=== PATIENT | female | born 1985 | race Caucasian/White ===

== ENCOUNTER 2016-08-18 12:52 | Observation (INO) ==
[2016-08-18 13:20] LABS: Bilirubin,Urine Negative (Negative); Blood,Urine Negative (Negative); Clarity,Urine Cloudy (Clear); Color,Urine Yellow (Yellow); Glucose,Urine (UA) Normal (Normal); Ketones,Urine Negative (Negative); Leukocyte Esterase,Urine Negative (Negative); Nitrite,Urine Negative (Negative); Protein,Urine Negative (Neg-Trace); Specific Gravity,Urine 1.018 (1.010-1.025); Urobilinogen,Urine Normal (Normal)
[2016-08-18 13:22] LABS: Bacteria,Urine None Seen per hpf (None-Few); Hyaline Casts,Urine None Seen per lpf (None-Few); RBC,Urine 0-3 per hpf (0-3); Squamous Epithelial Cell,Urine Many per lpf (None-Few); WBC,Urine 0-3 per hpf (0-3)
[2016-08-18 13:38] VITALS: BP 126/71
--- NOTE | 2016-08-18 13:55 | Discharge Summary ---
Date of Encounter: 08/18/16 Time of Encounter: 13:54 - Discharge Diagnosis (1) 33 weeks gestation of Priority: Primary Status: Acute Comments: Admit for labor evaluation (2) Decreased movement during in third trimester, antepartum Priority: Secondary Status: Acute Comments: Reactive NST FHR 140 bpm moderate variability +15x15 accels no decels noted. Qualifiers: Fetus number: single or unspecified fetus Qualified Code(s): O36.8130 - Decreased movements, third trimester, not applicable or unspecified (3) NST (non-stress test) reactive Priority: Secondary Status: Acute Comments: RNST - Discharge Medications Home Medications: Pnv95/Ferrous Fumarate/FA [ Caplet] 1 each PO DAILY 05/21/16 [History] Allergies/Adverse Reactions: Allergies No Known Allergies Allergy (Verified 08/18/16 13:39) Data Procedures and tests throughout hospitalization: Laboratory Tests 08/18/16 13:05 Urine Color Yellow Urine Clarity Cloudy A Urine pH 7.0 Ur Specific [place] 1.018 Urine Protein Negative Urine Glucose (UA) Normal Urine Ketones Negative Urine Blood Negative Urine Nitrite Negative Urine Bilirubin Negative Urine Urobilinogen Normal Ur Leukocyte Esterase Negative Urine Microscopic RBC 0-3 Urine Microscopic WBC 0-3 Ur Squamous Epith Cells Many H Urine Bacteria None Seen Hyaline Casts None Seen Ur Culture Indicated? NO Labs on day of discharge: Labs from last 24 hours 08/18/16 13:05 Urine Color Yellow Urine Clarity Cloudy A Urine pH 7.0 Ur Specific [place] 1.018 Urine Protein Negative Urine Glucose (UA) Normal Urine Ketones Negative Urine Blood Negative Urine Nitrite Negative Urine Bilirubin Negative Urine Urobilinogen Normal Ur Leukocyte Esterase Negative Urine Microscopic RBC 0-3 Urine Microscopic WBC 0-3 Ur Squamous Epith Cells Many H Urine Bacteria None Seen Hyaline Casts None Seen Ur Culture Indicated? NO Date of admission: 08/18/16 12:52 Primary care physician: PCP NO Discharging clinician: Barbi Avila Anticipated date of discharge: 08/18/16 - Patient Status Disposition: Home, Self-Care Condition: Good Functional capacity at discharge: independent ambulation - Discharge Instructions Follow Up With: NO,PCP [Primary Care Provider] - Konrad Pritchett MD [Partnered Physician] - - Diet and Activity Activity: increase activity as tolerated Diet: regular diet Hospital Course FORM PRESS OPERATOR Time Attestation: Total time spent providing and/or coordinating discharge services: Exam - Constitutional Vitals: Temp Pulse Resp BP 96.1 F L 103 20 126/71 08/18/16 13:24 08/18/16 13:24 08/18/16 13:24 08/18/16 13:24 General appearance IM: A&O X 3, pleasant, answers questions appropriately - Respiratory Respiratory exam: Present: CTAB - Cardiovascular Cardiovascular exam IM: Present: RRR, +S1, +S2 - GI/Abdominal GI/Abdominal exam IM: normal bowel sounds - Extremities Exam Extremities exam IM: Present: full ROM, normal capillary refill, normal inspection - Neurological Exam Neurological exam: alert, oriented X3, reflexes normal - VTE Reasons for not Prescribing Prophylaxis: Treatment not Indicated - Low risk for VTE
== END 2016-08-18 14:05 | disposition home or self-care (01) ==
LOC: 1NENULAB
PROVIDERS: ADMIT Obstetrics & Gynecology; ATTEND Obstetrics & Gynecology

== ENCOUNTER → 2016-09-23 12:35 | Observation (INO) ==
--- NOTE | 2016-09-23 11:00 | OB/GYN History & Physical ---
Date of Encounter: 09/23/16 Time of Encounter: 10:53 Assessment and Plan (1) Elective induction of labor planned Current visit: Yes Status: Acute At 39 weeks (future date), FHR/tocometer and IVF with patients requests for epidural for pain control. clear liquid diet. OK to walk, use birthing ball in efforts to progress labor (2) 38 weeks gestation of Current visit: Yes Status: Acute Receiving care with Dr Pritchett (3) False labor after 37 weeks of gestation without delivery Current visit: Yes Status: Acute No cervical change. Labor warnings given History of Present Illness Chief complaint: possible SROM, contractions HPI: Ms. Raman is a 30 year old female, A1, with one spontaneous miscarriage when she was 18 years of age. She is a patient of Dr. pritchett, 38 weeks and 3/ 7 days. Patient states that she was seen by her OB yesterday and she was 2cm dilated, 70% effaced and at 0430 this morning she woke up with contractions that were spaced at 6 min and had clear-blood tinged loss of fluid. Patient states that she is feeling low back pain and pelvic pressure. No complications this . SROM: 0430 A1 EDAL: 10/04/16 Fluid descriptionL clear to blood-tinged (-) GBS/rubella/HbSAg/T.pallidam/varicella Male child: Zeus Breast feeding [facility] followup circumcision: yes She plans to have an epidural for pain control. Past Med Surg Social Fam HX - Past Medical History Medical history: no medical history Psychiatric history: anxiety - Past Surgical History Surgical History: no surgical history - Social History Smoking Status: Former smoker Smokeless Tobacco Status: No Alcohol use: none Drug use: none - Family History Mother Living Status: Still Living Hx Family Cardiac Disorders: No Hx Family Respiratory Disorders: No Hx Family Cancer: Yes (skin caner) Hx Family GI Disorders: No Hx Family Endocrine Disorder: No Hx Family Neuromuscular Disorders: No Hx Family Neurologic Disorders: No Hx Family HEENT Disorders: No Hx Family Autoimmune Disorders: No Obstetrical History - Pregnancies : 2 Para: 0 Ab's: 1 Medications and Allergies Pnv95/Iron Fum/Folic Acid [ Caplet] 1 each PO DAILY 05/21/16 [History] Allergies No Known Allergies Allergy (Verified 08/18/16 13:39) Review of System OB All systems PM: reviewed and no additional remarkable complaints except as stated - Gastrointestinal Gastrointestinal: as per HPI, abdominal pain - Genitourinary Genitourinary: as per HPI, pelvic pain, vaginal discharge Exam - Vital Signs Vital signs: Afeb, VSS - Constitutional Constitutional: well developed, well nourished, no acute distress, average body habitus - HEENT HEENT: Normocephaly, Mucus Membranes Moist - Neck Neck exam: full ROM, normal inspection - Lungs Respiratory exam: CTAB - Cardiovascular Cardiovascular exam: RRR - Breasts Breast: bilateral: normal - Abdomen Abdomen: Present: bowel sounds normal, gravid, non tender - Extremities Extremities exam: full ROM, normal capillary refill, normal inspection - Vagina Vagina: Present: normal moisture (normal show, NTZ neg) - Cervix Dilation: 2 (per RN) Effacement: 70 (per RN) Station: -1 - Uterus Uterus exam: Present: normal size, normal contour - Anus/Rectum Anus/Rectum: Present: normal perianal skin Results All other labs normal. - VTE Reasons for not Prescribing Prophylaxis: Treatment not Indicated - Low risk for VTE - Attending Attestation I examined this patient and my medical decision-making was reviewed with the CHESTNUT TANNER/PA/Advanced Practice Nurse/Resident Physician. I agree with the documented findings, disposition and treatment plan as described except to the extent set forth below.
== END | disposition home or self-care (01) ==
LOC: 1NENULAB
PROVIDERS: ADMIT Obstetrics & Gynecology; ATTEND Obstetrics & Gynecology

== ENCOUNTER 2016-09-24 00:11 | Inpatient (IN) ==
--- NOTE | 2016-09-23 21:32 | OB/GYN Progress Note ---
Addendum entered and electronically signed by Preeti Rodríguez DO 09/24/16 06:14: On exam: Trace edema in bilateral extremities, non-tender, deep tendon reflexes 2+. Normal external genital exam with no evidence lesions, sores, or bleeding. No clear fluid leaking or pooling in the posterior fornix or running out of cervical OS, cervix dilated at 3cm, 80% effacement, station ballotable. Assessment and Plan: 38 weeks gestation of Nitrazine test was performed this morning at 10:43 by Jessica PINEDA and was negative. Multiple digital exams had been performed during the course of her stay using lubricant gel to check for cervical change/progression making a repeat test less likely to be accurate as specimen would be contaminated. Will give patient fluid bolus for dehydration as she admits she has been nauseated and unable to keep food down with episodes of vomiting and continue to monitor to see if patient makes progress toward active labor. Original Note: Date of Encounter: 09/24/16 Time of Encounter: 21:32 - Assessment and Plan (1) 38 weeks gestation of Current Visit: Yes Status: Acute 38 weeks and 3 days. (2) NST (non-stress test) reactive Current Visit: No Status: Acute FHR 135 baseline (3) Active labor Current Visit: Yes Status: Acute During the course of her stay patient's contractions at more consistent intervals of 2-4 minutes with progression; cervix now at 6 cm 90% effacement and 0 station. Patient received fluid bolus of 500 mils lactated Ringer and is currently on maintenance 125 mils an hour lactated Ringer's. Patient has also received Zofran and Tylenol. Plan for epidural anesthesia and Nubain for pain management. Expected management for spontaneous vaginal delivery. Possible AROM. Subjective - Subjective Principal diagnosis: Labor eval Interval history: Caitie Raman is a 30-year-old female at 38 weeks and 3 days. Patient was seen here earlier today at 10:53 am for false labor that began around 04:30 this am with contractions reported to be 6-10 minutes apart, clear fluid loss, low back pain and pelvis pressure, cervix was 2 cm dilated 70% effaced. During her course of stay there was no cervical change/progress on further evaluation patient was given return precautions and was discharged home. Patient has now returned for progressively increasing contractions noted to be 4 minutes apart at home, further leakage of clear fluid, pelvic pressure, low back pain, headaches and nausea with two episode of non-bloody emesis since arrival. Patient is seen by Dr. Pritchett. No complications during this . Patient plans to have an epidural for pain control during labor. 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 Last Pap smear 4 years ago Abnormal Pap smear 07/22/2009 low-grade squamous intraepithelial lesion History of Chlamydia date unknown. Last menstrual period 01/02/2016 I examined this patient and my medical decision-making was reviewed with the BENDING MACHINE SET UP OPERATOR/PA/Advanced Practice Nurse/Resident Physician. I agree with the documented findings, disposition and treatment plan as described except to the extent set forth below. Antepartum ROS: movement normal, contractions Objective - Vital Signs Vital Signs: Intake and Output 09/23/16 09/23/16 09/23/16 07:59 15:59 23:59 Other: Weight 111.2 kg Patient Weight 09/23/16 23:59 Weight 111.2 kg - Exam FHR: auscultation normal Auscultation: bilateral: normal Abdomen: Present: normal appearance, soft, gravid Uterus: Present: normal Cervical dilation: 4 Cervix effacement: 80 station: -1
[2016-09-23 23:07] LABS: Basophils # 0.1 K/mcL (0.0-0.2); Basophils % 0.3 %; Eosinophils % 0.1 %; Hematocrit 37.6 % (35.3-44.9); Hemoglobin 12.7 g/dL (11.5-15.4); Immature Granulocytes % 1.3 % (0-4); Lymphocytes # 1.3 K/mcL (0.6-4.6); Lymphocytes % 6.5 %; Mean Corpuscular HGB Conc 33.8 g/dL (31.6-35.5); Mean Corpuscular Hemoglobin 28.2 pg (28.0-33.3); Mean Corpuscular Volume 83.4 fL (83.0-100.0); Monocytes # 0.7 K/mcL (0.0-1.3); Monocytes % 3.7 %; Neutrophils # 17.1 K/mcL (1.6-8.9); Platelet Count 284 K/mcL (140-400); Red Blood Count 4.51 M/mcL (3.82-4.97); Red Cell Distribution Width 13.6 % (11.5-14.5); Segmented Neutrophils % 88.1 %
[~2016-09-24 00:11] MED LIST: *HR* Nalbuphine 20 MG/ML AMPUL IVP PRN; Acetaminophen 325 MG TABLET PO ONE; Famotidine 20 MG/2 ML VIAL IVP PRN; Metoclopramide 10 MG/2 ML VIAL IVP PRN; Naloxone 0.4 MG/ML INJ IVP PRN; Ondansetron ODT 4 MG TAB.RAPDIS SL ONE; Ringers Solution, Lactated 1,000 ML ONE; Ringers Solution, Lactated 500 ML IVC ONE
[2016-09-24] MEDS ORDERED: *HR* FentaNYL (PF) 100 MCG/2 ML VIAL ONE ×3 (00:13→16:22)
[2016-09-24] MEDS ORDERED: Bupivacaine-MPF 0.25% 10 ML VIAL ONE (00:13)
[2016-09-24] MEDS ORDERED: Epidural Premix (fent/bupiv) 110 ML EP ONE ×3 (00:13→14:31)
--- NOTE | 2016-09-24 00:57 | Anesthesia Evaluation PreOp ---
Date of Encounter: 09/24/16 Time of Encounter: 00:25 - Past History Planned Operation: peng Cardiac History: Denies any Significant Hx Pulmonary History: Denies Any Significant HX FUR CUTTER History: Denies Any Significant HX Other Medical History: GERD Anesthesia History: No Prior Anesthetic Complications (never had any procedure requiring GA or NA; denies family h/o anesthesia complications) : Yes Test: Positive Alcohol Use: none Drug use: none Medications and Allergies Pnv95/Iron Fum/Folic Acid [ Caplet] 1 each PO DAILY 05/21/16 [History] Famotidine [Acid Public Policy Coordinator] PO DAILY 09/23/16 [History] Allergies No Known Allergies Allergy (Verified 09/23/16 20:30) - Meds/Allergy Pre-op Review Medications Reviewed: Yes Allergies Reviewed: Yes Beta Blockers on Current Med List: No Anesthesia Results - Labs 09/23/16 22:42 Anesthesia Exam 127/94, HR 99, RR 16 Height: 1.68m Weight: 111kg NPO (# of Hours): solids > 4hours Pain Scale: 10 Pain Scale Used: Numeric (1 - 10) - HEENT Pupil (Motor): Pupils equal Mallampati: II Teeth: Normal Oral Opening: Greater than 3 - FUR CUTTER LOC: Oriented FUR CUTTER Motor: Normal RUE, Normal LUE, Normal RLE, Normal LLE, Normal Face FUR CUTTER Sensory: Normal: RUE, LUE, RLE, LLE, Face - Cardiac Rhythm: Regular Murmur: None JVD: No Carotid Bruit: No - Pulmonary Breath Sounds: bilateral Clear Respiratory Effort: Symmetrical Anesthesia Assess/Plan ASA Score: 2 Modified [place] Scale for Level of Consciousness: Anixous, agitated or restless Anesthetic Plan: Regional Autologous Blood: No Monitoring Plan: Standard Monitors Recovery Plan: Other
--- NOTE | 2016-09-24 01:00 | Anesthesia Procedures ---
Date of Encounter: 09/24/16 Time of Encounter: 00:50 Procedures: Anesthesia - Epidural/Spinal Patient examined: Yes OB Eval: Gestational age: 38 weeks 4 days OB Eval: : 1 OB Eval: Hx Para: 0 OB Eval: Dilated at (cm): 6 OB Eval: Contractions: Non-stressed pattern Consent Obtained: Yes Supplemental Oxygen: None/Room Air Site Prep: Aseptic Technique, Sterile prep and drape, Povidone-Iodine 1% Patient position: upright Local Anesthetic: Lidocaine 1% Amount of Local Anesthetic used: 3 Touhy Needle Gauge: 18 Touhy Needle Depth (cm): 6 Catheter Depth at Skin (cm): 13 Test Dose (1.5% Lido + Epi): Volume given (mls): 5 (given in 2 equally divided doses over a period of 5 min) Test Dose Result: Negative Loading Dose: 0.25% Marcaine (mls): 5 Loading Dose: Fentanyl (mcg): 100 Loading Dose Administered: Thru Catheter Infusion Med: 0.125% Bupivacaine w/ 2 mcg/ml Fentanyl Infusion Rate (mls/hr): 12 (w/ demand bolus of 4mL q20min PRN) Catheter Secured in Place: Tegaderm, Tape Interspace Used: L3-L4 Loss of Resistance (MARICARMEN): Yes Blood: No CSF: No Paresthesia: No Vitals + FHT's: 3 Vital Signs Time 0025 0030 0033 0040 0043 0047 BP 141/102 139/80 123/96 142/84 130/72 116/58 Pulse 90 118 100 93 82 92 FHTs
[2016-09-24] MEDS ORDERED: *HR* FentaNYL (PF) 100 MCG/2 ML VIAL EP ONE (01:01)
[2016-09-24] MEDS ORDERED: Bupivacaine-MPF 0.25% 10 ML VIAL EP ONE (01:01)
[2016-09-24] MEDS ORDERED: Epidural Premix (fent/bupiv) 110 ML EP SCH (01:15)
[2016-09-24] MEDS ORDERED: Mag Hydrox/Al Hydrox/Simeth 30 ML UDC PO PRN (01:39)
--- NOTE | 2016-09-24 03:53 | OB Labor Progress Note ---
Date of Encounter: 09/24/16 Time of Encounter: 03:48 Labor Progress Note - Subjective Subjective: Patient began feeling increased pressure in her lower pelvis and asked for a cervical check. While performing cervix check nurse had sudden gush of fluid from vagina; membranes ruptured and were noted to be clear. Patient states that she is now nervous and excited since her water just broke became very emotional. Patient was cleaned and repositioned in left lateral. Plan to peanut ball. Contractions at intervals between 2-5 min. Patient states that she is feeling much more comfortable with epidural. - Vital Signs Vital Signs: BP 133/72 P 108 RR 16 Afebrile - Cervix Cervix: Completely dilated, station -1 to -2, [id number] - Heart Tones Heart Tones: 130 - Doon Doon: Irregular between 2-5 minutes - Interventions Interventions: 38 week spontaneous labor with SROM - Plan Plan: Expectant management for spontaneous vaginal delivery. I examined this patient and my medical decision-making was reviewed with the COOK HELPER JUICE/PA/Advanced Practice Nurse/Resident Physician. I agree with the documented findings, disposition and treatment plan as described except to the extent set forth below.
[2016-09-24] MEDS: Ondansetron 4 MG/2 ML VIAL IVP PRN ×2 (06:05→10:27)
[2016-09-24] MEDS ORDERED: ROPIVACAINE HCL/PF 0.5% 30 ML VIAL ONE (07:23)
[2016-09-24] MEDS ORDERED: Oxytocin 20 units/ LR 1000 mL 20 UNIT/1,000 ML BAG IVC ONE (07:38)
[2016-09-24] MEDS: Ringers Solution, Lactated 1,000 ML IVC SCH ×2 (07:43→14:06)
[2016-09-24] MEDS ORDERED: miSOPROStol 100 MCG TABLET PO ONE (08:52)
[2016-09-24] MEDS ORDERED: Oxytocin 20 units/ LR 1000 mL 20 UNIT/1,000 ML BAG IVC SCH ×2 (10:00→22:24)
[2016-09-24] MEDS ORDERED: Ondansetron 4 MG/2 ML VIAL IVP ONE (10:15)
--- NOTE | 2016-09-24 13:45 | OB Labor Progress Note ---
Date of Encounter: 09/24/16 Time of Encounter: 13:45 Labor Progress Note - Subjective Subjective: patient is doing well, she still has a rim of cervix, we stopped pitocin earlier on but we have restarted it now that her contractions have stopped. She has an epidural and is comfortable. VSS FHT CAT 1 plan now is to let her labor down cont monitoring strip
--- NOTE | 2016-09-24 16:10 | OB Labor Progress Note ---
Date of Encounter: 09/24/16 Time of Encounter: 16:08 Labor Progress Note - Subjective Subjective: Patient is now pushing and @ +2 station, comfortable with her epidural and on pitocin VSS FHT CAT 1 plan is to continue to push, anticipate
[2016-09-24] MEDS ORDERED: Lidocaine/EPI 1:200k 2% PF 20 ML VIAL ONE (16:28)
[2016-09-24] MEDS ORDERED: Lidocaine 1% 20 ML MDV ONE (20:28)
--- NOTE | 2016-09-24 20:52 | OB/GYN Procedure Note ---
Delivery - Delivery Date: 09/24/16 Provider: Konrad Pritchett Intrapartum events: none Delivery induction: none Delivery monitor: external FHT, external uterine Anesthesia: local, epidural Estimated Blood Loss: 300 - (s) Infant A Infant Delivery Date: 09/24/16 Infant Delivery Time: 20:15 Presentation: vertex Position: OP Route of delivery: Gender: Male Viability: Viable Pounds: 8 Ounces: 2 at 1 minute: 1 at 5 mins: 9 Shoulder Dystocia: not encountered Specimens collected: cord blood, venous cord gases, arterial cord gases Placenta: spontaneous Cord: nuchal cord, 3 umbilical vessels - Repair Episiotomy: none Laceration Description: Perineal - 2nd Degree - Complications Delivery complications: none - Disposition Mom disposition: stable in LDR [place] disposition: stable in LDR - Comments Comments: Patient's 30-year-old 1 now para 1 female who presented in labor at 38 weeks and 4 days and is now status post normal spontaneous vaginal delivery from direct OP presentation. heart rate tracing looked good throughout delivery with excellent variability. Infant was delivered through the loose nuchal cord 1 however delivered infant was initially quite flaccid. Cord was immediately clamped and cut and was taken to the warmer where resuscitative efforts immediately begun. These involve tactile stimulation and bag mask ventilation for a little over 2 minutes. Initial 1 minute was 1 however has not responded to efforts and 5 minute was 9. Placenta was delivered spontaneously intact. Second-degree laceration was repaired with 3-0 Vicryl under local and epidural anesthesia. The IV did infiltrate therefore massage and 400 g of by mouth Cytotec was given. All sponge and counts are correct patient taken recovery in good condition.
[2016-09-24] MEDS ORDERED: Ampicillin 2 GM in 0.9 % Sodium Chloride Mini Bag 100 ML IVPB ONE (22:03)
[2016-09-24] MEDS ORDERED: Gentamicin 100 MG in 0.9 % Sodium Chloride 100 ML IVPB ONE (22:05)
--- NOTE | 2016-09-24 22:14 | Event Note ---
Date of Encounter: 09/24/16 Time of Encounter: 22:11 Per nursing, patient was febrile after labor at 102.9F oral. This self- corrected to below 100, then alessandra again to 100.9. Patient GBS (-). SROM at 03:30 this morning; appx 18hrs prior to delivery. Will empirically treat with Ampcillin 2g now, 1g Q4hr and Gentamycin 100mg now, pharm to dose remainder. Indication: suspected mild endometritis. The above was discussed and agreed upon with my attending.
[2016-09-24] MEDS ORDERED: Rho Immune Globulin 1,500 UNIT SYRINGE IM PRN (22:24)
[2016-09-24] MEDS ORDERED: Measles/Mumps/Rubella Vacc 0.5 ML VIAL SQ PRN (22:24)
[2016-09-24] MEDS ORDERED: Acetaminophen 325 MG TABLET PO PRN (22:24)
[2016-09-24] MEDS ORDERED: Gentamicin 80 MG/2 ML VIAL IM ONE (23:39)
[2016-09-25] MEDS: Ringers Solution, Lactated 1,000 ML IVC SCH ×3 (01:06→12:00)
[2016-09-25] MEDS ORDERED: Ampicillin 1,000 MG in 0.9 % Sodium Chloride Mini Bag 100 ML IVPB SCH (02:00)
[2016-09-25] MEDS: Ampicillin 1,000 MG in 0.9 % Sodium Chloride Mini Bag 100 ML IVPB SCH ×6 (02:41→21:46)
[2016-09-25 05:29] LABS: Eosinophils % 0.1 %; Hematocrit 28.9 % (35.3-44.9); Mean Corpuscular HGB Conc 34.3 g/dL (31.6-35.5); Monocytes % 4.8 %
[2016-09-25 05:31] LABS: Basophils # 0.1 K/mcL (0.0-0.2); Basophils % 0.3 %; Hemoglobin 9.9 g/dL (11.5-15.4); Immature Granulocytes % 1.1 % (0-4); Lymphocytes # 2.1 K/mcL (0.6-4.6); Lymphocytes % 6.5 %; Mean Corpuscular Hemoglobin 29.3 pg (28.0-33.3); Mean Corpuscular Volume 85.5 fL (83.0-100.0); Mean Platelet Volume 10.8 fL (9.4-12.4); Monocytes # 1.5 K/mcL (0.0-1.3); Neutrophils # 27.7 K/mcL (1.6-8.9); Platelet Count 241 K/mcL (140-400); Red Blood Count 3.38 M/mcL (3.82-4.97); Red Cell Distribution Width 14.2 % (11.5-14.5); Segmented Neutrophils % 87.2 %
[2016-09-25 05:57] LABS: Platelet Estimate Normal (Normal)
[2016-09-25] MEDS ORDERED: Gentamicin 100 MG in 0.9 % Sodium Chloride 100 ML IVPB SCH (08:00)
[2016-09-25] MEDS: Ibuprofen 600 MG TABLET PO PRN ×2 (08:18→21:48)
[2016-09-25] MEDS: Prenatal Vit/FA 1 EACH TABLET PO SCH (08:18)
--- NOTE | 2016-09-25 08:38 | OB/GYN Progress Note ---
Date of Encounter: 09/25/16 Time of Encounter: 08:30 - Assessment and Plan (1) Status post vaginal delivery Current Visit: Yes Status: Acute (2) Urinary retention Current Visit: Yes Status: Acute will place urinary catheter (3) Neutrophilic leukocytosis Current Visit: Yes Status: Acute Continue antibiotics repeat CBC in am Subjective - Subjective Interval history: patient states she is feeling a lot of pressure still not able to urinate they straight cathed her last night 0300 900cc out, could only urinate 175cc. patient pushed she states for approx 6hr total and delivered OP, probably has urethral trauma and recommended placing a catheter for the next 24 hours. Patient has elevated white count 31,000 with a left shift on ampicillin and gentamicin if spikes again we will add clindamycin. Patient will get a CBC in the morning to see if values coming down. She has been afebrile since last night. Patient reports: appetite normal, pain well controlled, other (unable to urinate ) : doing well Objective - Latest Vital Signs Latest vital signs: Vital Signs Temp Pulse Resp BP Pulse Ox 09/25/16 03:20 98.7 F 82 16 110/74 98 09/25/16 01:10 98.4 F 83 18 113/73 98 09/25/16 00:15 99.1 F 91 16 124/82 98 09/24/16 23:10 98.8 F 101 14 128/93 97 Intake and Output 09/24/16 09/25/16 09/25/16 23:59 07:59 15:59 Intake Total 100 / 100 200 / 200 Output Total 150 / 150 1100 / 1100 Balance -50 / -50 -900 / -900 Intake: IV Fluids 100 / 100 200 / 200 Ampicillin 1,000 MG In 0. 200 / 200 9 % Sodium Chloride (Mini -Bag +) 100 ML @ 200 mls/ hr IVPB Q4H [facility] Rx#: [id number] Ampicillin 2 GM In 0.9 % 100 / 100 Sodium Chloride (Mini-Bag +) 100 ML @ 200 mls/hr IVPB ONCE ONE Rx#: [id number] Output: Urine 150 / 150 Straight Cath 150 / 150 950 / 950 Other: Weight 107 kg - Exam Lungs: bilateral: normal Chest: Normal S1, Normal S2 Extremities: Present: normal Abdomen: Present: soft Uterus: Present: firm Uterus Position: At Umbilicus - Labs Labs: Laboratory Results - last 24 hr 09/25/16 05:21 WBC 31.8 H* D RBC 3.38 L Hgb 9.9 L D Hct 28.9 L MCV 85.5 MCH 29.3 MCHC 34.3 RDW 14.2 Plt Count 241 MPV 10.8 Immature Gran % 1.1 Seg Neutrophils % 87.2 Lymphocytes % 6.5 Monocytes % 4.8 Eosinophils % 0.1 Basophils % 0.3 Neutrophils # 27.7 H Lymphocytes # 2.1 Monocytes # 1.5 H Eosinophils # 0.0 Basophils # 0.1 Platelet Estimate Normal
[2016-09-25] MEDS: Gentamicin 400 MG in 0.9 % Sodium Chloride 100 ML IVPB SCH (18:15)
[2016-09-25] MEDS ORDERED: Gentamicin 80 MG in 0.9 % Sodium Chloride 100 ML IVPB ONE (22:05)
[2016-09-26] MEDS: Ampicillin 1,000 MG in 0.9 % Sodium Chloride Mini Bag 100 ML IVPB SCH ×5 (01:44→21:24)
[2016-09-26 04:55] LABS: Basophils # 0.1 K/mcL (0.0-0.2); Basophils % 0.3 %; Eosinophils # 0.3 K/mcL (0.0-0.6); Eosinophils % 1.7 %; Hematocrit 28.5 % (35.3-44.9); Hemoglobin 9.2 g/dL (11.5-15.4); Lymphocytes # 2.5 K/mcL (0.6-4.6); Lymphocytes % 16.3 %; Mean Corpuscular HGB Conc 32.3 g/dL (31.6-35.5); Mean Corpuscular Hemoglobin 28.1 pg (28.0-33.3); Mean Corpuscular Volume 87.2 fL (83.0-100.0); Mean Platelet Volume 10.8 fL (9.4-12.4); Monocytes # 0.8 K/mcL (0.0-1.3); Monocytes % 5.4 %; Neutrophils # 11.4 K/mcL (1.6-8.9); Platelet Count 233 K/mcL (140-400); Red Blood Count 3.27 M/mcL (3.82-4.97); Red Cell Distribution Width 14.1 % (11.5-14.5); Segmented Neutrophils % 75.3 %
[2016-09-26 05:16] LABS: BUN/Creatinine Ratio 17 (6-26); Blood Urea Nitrogen 12 mg/dL (7-20); eGFR For African Americans > 60 (> 60); eGFR For Non-African Americans > 60 (> 60)
--- NOTE | 2016-09-26 09:16 | OB/GYN Progress Note ---
Date of Encounter: 09/26/16 Time of Encounter: 09:16 - Assessment and Plan (1) Status post vaginal delivery Current Visit: Yes Status: Acute continue antibiotics till tomorrow AM then switch to PO to go home, cont current inpt care, monitor urine outpt now that deshpande is out can be discharged to mom in room Subjective - Subjective Interval history: saw and examined patient, deshpande taken out this AM. So far even though she has not been able to urinate, she is producing adequate urine via deshpande. She is ambulating and tolerating PO without issues, pain is under control, lochia is light, currently , infant doing well Objective - Latest Vital Signs Latest vital signs: Vital Signs Temp Pulse Resp BP Pulse Ox 09/26/16 08:00 98.2 F 83 16 128/90 100 09/26/16 03:28 97.5 F L 78 16 103/71 100 09/25/16 22:50 97.9 F 81 16 109/71 100 09/25/16 19:50 97.8 F 89 16 111/70 99 09/25/16 16:00 97.7 F 69 16 126/85 97 Intake and Output 09/25/16 09/26/16 09/26/16 23:59 07:59 15:59 Intake Total 1300 / 1300 650 / 650 Output Total 1500 / 1500 1400 / 1400 185 / 185 Balance -200 / -200 -750 / -750 -185 / -185 Intake: IV Fluids 310 / 310 100 / 100 Ampicillin 1,000 MG In 0. 200 / 200 100 / 100 9 % Sodium Chloride (Mini -Bag +) 100 ML @ 200 mls/ hr IVPB Q4H [facility] Rx#: [id number] Garamycin 400 MG In 0.9 % 110 / 110 Sodium Chloride 100 ML @ 110 mls/hr IVPB Q24H [facility] Rx#:[id number] Oral 990 / 990 550 / 550 Output: Catheter 1500 / 1500 1400 / 1400 185 / 185 - Exam Lungs: bilateral: normal Chest: Normal S1, Normal S2 Extremities: Present: normal Abdomen: Present: normal appearance, soft Uterus: Present: firm Uterus Position: 1 Finger Below Umbilicus - Labs Labs: Laboratory Results - last 24 hr 09/26/16 09/26/16 09/26/16 04:28 04:28 04:28 WBC 15.1 H D RBC 3.27 L Hgb 9.2 L Hct 28.5 L MCV 87.2 MCH 28.1 MCHC 32.3 RDW 14.1 Plt Count 233 MPV 10.8 Immature Gran % 1.0 Seg Neutrophils % 75.3 Lymphocytes % 16.3 Monocytes % 5.4 Eosinophils % 1.7 Basophils % 0.3 Neutrophils # 11.4 H Lymphocytes # 2.5 Monocytes # 0.8 Eosinophils # 0.3 Basophils # 0.1 BUN 12 Creatinine 0.71 Est GFR ( Amer) > 60 Est GFR (Non-Af Amer) > 60 BUN/Creatinine Ratio 17 Random Gentamicin 1.4
[2016-09-26] MEDS: Prenatal Vit/FA 1 EACH TABLET PO SCH (10:10)
[2016-09-26] MEDS: Ringers Solution, Lactated 1,000 ML IVC SCH (10:21)
[2016-09-26] MEDS: Ibuprofen 600 MG TABLET PO PRN ×2 (11:48→21:32)
[2016-09-26] MEDS ORDERED: Lanolin 7 G OINT...G. TP PRN (15:44)
[2016-09-26] MEDS: Gentamicin 400 MG in 0.9 % Sodium Chloride 100 ML IVPB SCH (18:30)
[2016-09-27] MEDS: Ampicillin 1,000 MG in 0.9 % Sodium Chloride Mini Bag 100 ML IVPB SCH ×2 (02:41→06:27)
--- NOTE | 2016-09-27 08:09 | Discharge Summary ---
Date of Encounter: 09/27/16 Time of Encounter: 08:07 - Discharge Diagnosis (1) Status post vaginal delivery Priority: Primary Status: Acute Comments: 1. Status post vaginal delivery Day 3 S/P vaginal delivery; prolonged labor and delivery. Now ([id number]). Infant D/C yesterday. Plan: discharge home with augmentin, motrin, Fe. Follow-up 4 wks. 2. Neutropenic leukocytosis Clinically 2/2 prolonged labor. Day 3 IV Ampcillin and Gentamycin. Patient afebrile. Leukocytosis improving. Plan: Discharge home with PO Augmentin BID x 7 days. Return precautions. 3. Urinary retention Post urinary retention. Managed with Lacy. Lacy discontinued yesterday. Patient now spontaneously voiding without complaint or concern. Resolved. (2) Neutrophilic leukocytosis Priority: Secondary Status: Acute Comments: as above (3) Urinary retention Priority: Secondary Status: Resolved Comments: as above - Discharge Medications Prescriptions: Ibuprofen [Motrin] 600 mg PO Q6HR PRN #40 tablet PRN Reason: Pain Amoxicillin/Clavulanate [Augmentin] 875 mg PO BIDWM #14 tablet Breast Pump [BREAST PUMP] 1 each .ROUTE AD #1 each Ferrous Sulfate 325 mg PO DAILY #40 tablet Home Medications: Pnv95/Iron Fum/Folic Acid [ Caplet] 1 each PO DAILY 05/21/16 [History] Famotidine [Acid Medical Billing Manager] PO DAILY 09/23/16 [History] Acetaminophen [Tylenol] 650 mg PO Q6HR PRN #0 tablet 09/27/16 [Rx] Amoxicillin/Clavulanate [Augmentin] 875 mg PO BIDWM #14 tablet 09/27/16 [Rx] Breast Pump [BREAST PUMP] 1 each .ROUTE AD #1 each 09/27/16 [Rx] Docusate [Colace] 100 mg PO BID capsule 09/27/16 [Rx] Ferrous Sulfate 325 mg PO DAILY #40 tablet 09/27/16 [Rx] Ibuprofen [Motrin] 600 mg PO Q6HR PRN #40 tablet 09/27/16 [Rx] Vit/FA 1 each PO DAILY tablet 09/27/16 [Rx] Allergies/Adverse Reactions: Allergies No Known Allergies Allergy (Verified 09/23/16 20:30) Data Procedures and tests throughout hospitalization: Laboratory Tests 09/23/16 09/25/16 09/26/16 22:42 05:21 04:28 WBC 19.5 H 31.8 H* D 15.1 H D RBC 4.51 3.38 L 3.27 L Hgb 12.7 9.9 L D 9.2 L Hct 37.6 28.9 L 28.5 L MCV 83.4 85.5 87.2 MCH 28.2 29.3 28.1 MCHC 33.8 34.3 32.3 RDW 13.6 14.2 14.1 Plt Count 284 241 233 MPV 11.0 10.8 10.8 Immature Gran % 1.3 1.1 1.0 Seg Neutrophils % 88.1 87.2 75.3 Lymphocytes % 6.5 6.5 16.3 Monocytes % 3.7 4.8 5.4 Eosinophils % 0.1 0.1 1.7 Basophils % 0.3 0.3 0.3 Neutrophils # 17.1 H 27.7 H 11.4 H Lymphocytes # 1.3 2.1 2.5 Monocytes # 0.7 1.5 H 0.8 Eosinophils # 0.0 0.0 0.3 Basophils # 0.1 0.1 0.1 Platelet Estimate Normal BUN Creatinine Est GFR ( Amer) Est GFR (Non-Af Amer) BUN/Creatinine Ratio Random Gentamicin 09/26/16 09/26/16 04:28 04:28 WBC RBC Hgb Hct MCV MCH MCHC RDW Plt Count MPV Immature Gran % Seg Neutrophils % Lymphocytes % Monocytes % Eosinophils % Basophils % Neutrophils # Lymphocytes # Monocytes # Eosinophils # Basophils # Platelet Estimate BUN 12 Creatinine 0.71 Est GFR ( Amer) > 60 Est GFR (Non-Af Amer) > 60 BUN/Creatinine Ratio 17 Random Gentamicin 1.4 Date of admission: 09/24/16 00:11 Primary care physician: PCP NO Consults: 09/24/16 22:24 Consult to Business Systems Lead [CONS] Routine Comment: Vaginal delivery, consult needed Discharging clinician: Miguel Ángel Zaldivar Anticipated date of discharge: 09/27/16 - Patient Status Disposition: Home, Self-Care Condition: Good Functional capacity at discharge: independent ambulation Overall status at discharge: patient is progressing back to baseline - Discharge Instructions Instructions: Vaginal Delivery (DC) Follow Up With: Konrad Pritchett MD [Partnered Physician] - - Diet and Activity Activity: increase activity as tolerated, resume usual activities as tolerated Diet: advance to your usual diet Hospital Course Reason for admission: active labor Delivery: , other (Vertex, Occiput posterior, prolonged labor.) Episiotomy: none Laceration: 2nd degree Other procedures: none complications: perineal laceration, other (fever, leukocytosis) Discharge diagnosis: IUP at term delivered baby: male Hospital course: Patient arrived 09/24 with labor concerns. No cervical change; dx with false labor, discharge home. Returned same day with contractions and cervical change. Prolonged labor contractions not augmented, analgesia via epidural. heart tracings good throughout labor and delivery. Baby vertex, occiput posterior. Delivered with loose nuchal cord x1, initially flaccid. After immediate resuscitative efforts, 1min 1, 5min 9. No complications with placental delivery. 2nd degree perineal laceration repaired with local and epidural anesthesia. Patient's IV infiltrated precluding pitocin drip; 400mcg PO Cytotec given. Patient developed a fever of 102 immediately post with leukocytosis 31.8. Empiric ampcillin and gentamycin started. Leukocytosis improved, fever resolved. Patient had initial bladder atony, resolved after a short duration of Lacy catheter. Hospital day 3: Patient is doing well. Denies fever, chills, nausea, vomiting, weakness. Is spontaneously urinating without difficulty. Has not had a BM however is passing flatus and denies abdominal pain. Appetite good. I spent time discussing why she has been placed on an antibiotic and the intent for continued PO abx as outpatient. Her only question is when she can go home. Baby is doing well. Dad is doing well. Time Attestation: Total time spent providing and/or coordinating discharge services: Specific discharge activities: Follow-up with primary OB in 4 weeks or sooner if needed. Exam - Constitutional Vitals: Temp Pulse Resp BP Pulse Ox 98.0 F 85 16 118/83 100 09/27/16 03:20 09/27/16 03:20 09/27/16 03:20 09/27/16 03:20 09/27/16 03:20 General appearance IM: cooperative, A&O X 3, pleasant, no acute distress, obese - Respiratory Respiratory exam: Present: CTAB. Absent: respiratory distress - Cardiovascular Cardiovascular exam IM: Present: RRR, +S1, +S2. Absent: systolic murmur - GI/Abdominal GI/Abdominal exam IM: normal bowel sounds, soft, no peritoneal signs - Uterine Tone: Firm Uterus Position: 2 Fingers Below Umbilicus - Extremities Exam Extremities exam IM: Present: pedal edema (1+ equal bilaterally), warm, radial pulses palpable and symetrical - Neurological Exam Neurological exam: alert, oriented X3
[2016-09-27 08:20] VITALS: BP 122/80
[2016-09-27] MEDS: Prenatal Vit/FA 1 EACH TABLET PO SCH (08:24)
[2016-09-27] MEDS: Ibuprofen 600 MG TABLET PO PRN (08:24)
[2016-09-27] MEDS ORDERED: Aminoglycoside Consult 1 EACH MC ONE (15:49)
== END 2016-09-27 15:50 | disposition home or self-care (01) | DRG 560 ==
LOC: 1NENULAB → 1NENUOBS 23:06
PROVIDERS: ADMIT Obstetrics & Gynecology; ATTEND Obstetrics & Gynecology